=== PATIENT | female | born 2000 | race Caucasian/White ===

== ENCOUNTER 2018-06-05 00:43 | Emergency (ER) | payer SELFPAY ==
[2018-06-05 01:27] LABS: Bilirubin Negative (Negative); Blood, Urine Negative (Negative); Clarity CLEAR (Clear); Glucose, Urine (Dipstick) Negative (Negative); Leukocyte Negative (Negative); Nitrite Negative (Negative); Pregnancy Test - Urine (BHCG) Negative (Negative); Protein, Urine (Dipstick) Negative (Neg-Trace); Specific Gravity, Urine 1.014 (1.002-1.036); Urobilinogen 0.2 mg/dL (0.2-1.0); pH, Urine 5.5 (5.0-9.0)
[2018-06-05 01:28] LABS: Pregu Control Background? CLEAR/WHITE (CLR/WHITE); Pregu Control Bar Appear? YES (CONTROL BAR); Specific Gravity 1.014 (1.002-1.036)
[2018-06-05] MEDS ORDERED: Ketorolac Tromethamine 30 MG/ML VIAL ONE (02:27)
[2018-06-05] MEDS ORDERED: HYDROcodone/Acetaminophen 10/325 mg Tablet ONE (02:27)
--- NOTE | 2018-06-05 09:28 | ULT ---
PRELIMINARY REPORT/[facility]/EMERGENTY AFTER-HOURS PROCEDURE US Pelvis Complete, Transabdominal and US Pelvis, Transvaginal US Duplex Artery and Vein of the Abdomen, Pelvis, Scrotum and/or Retroperitoneum. Complete Ovarian. EXAM DATE/TIME: 06/05/2018 1:24 AM CLINICAL HISTORY: 18 years old, female; Pain; Other: Sudden onset sever rlq pain, HX of prev ov cyst TECHNIQUE: Real-time transabdominal and transvaginal pelvic ultrasound (complete) with image documentation. Cannon svaginal imaging was used for better evaluation of the endometrium and adnexa. Real-time duplex ultra sound scan of the arterial and venous flow with color Doppler flow and spectral waveform analysis. Complete duplex exam focused on the ovaries. COMPARISON: No relevant prior studies available. FINDINGS: Left ovary was not visualized on transvaginal ultrasound. Therefore a transabdominal ultrasound was p erformed for further evaluation. Duplex ultrasound scan with color Doppler flow and spectral waveform analysis was also performed for evaluation of pelvic and ovarian blood flow and torsion. Uterus/cervix: No myometrial mass. Endometrium measures 0.5 cm in thickness. Right adnexa: Right ovarian complex/probable hemorrhagic cyst measuring up to 2.3 cm. Otherwise unrem arkable. Normal duplex of the ovary. No evidence of torsion. Left adnexa: No acute findings. No mass. Normal duplex of the ovary. No evidence of torsion. Free fluid: Moderate. Bladder: The bladder is decompressed. IMPRESSION: Right ovarian complex/probable hemorrhagic cyst. Pelvic fluid. Thank you for allowing us to participate in the care of your patient. Dictated and Authenticated by: Darinel Watts MD 06/05/2018 2:23 AM Central Time ([place] & [place]) FINAL REPORT by Dr. Perez EMERGENCY AFTER HOURS STUDY ULTRASOUND PELVIS ULTRASOUND TRANSVAGINAL DOPPLER DUPLEX: DATE: 06/05/2018. TIME: 1:51 a.m. HISTORY: A 18-year-old female with sudden severe onset of right-sided pelvic pain. TECHNIQUE: Transabdominal transducer used to evaluate intrapelvic contents. Endovaginal transducer used to visu blanca intrapelvic contents in greater detail. Color flow Doppler and Pulsed Doppler spectral waveform analysis of ovaries. FINDINGS: Uterus: 7 x 3 x 4 cm. Endometrial stripe: 0.5 cm (5 mm). Right ovary: 4.5 x 3 x 3 cm. Left ovary: 2.5 x 1.5 x 2.5 cm. Uterine leiomyoma (fibroid): None. Blood flow in both ovaries: Present. Ovarian cyst: 2.5 x 2 x 2.5 cm lesion in the right ovary with crescentic liquid component and oval so lid-appearing component which may represent hemorrhage. Free fluid in the cul-de-sac: Small amount. This report agrees with preliminary report by [facility]. IMPRESSION: A 2.5 cm right ovarian lesion, probably representing a hemorrhagic ovarian cyst. ALFREDO [place] POS: JAIME
== END 2018-06-05 03:47 | disposition home or self-care (01) ==
LOC: ERS 00:43
DX: N83.201 Unspecified ovarian cyst, right side (principal); Z87.891 Personal history of nicotine dependence
CPT/HCPCS: 76856; 81003; 81025; 96372; J1885

== ENCOUNTER 2019-02-12 08:27 | Day surgery (SDC) | payer OTHER ==
[2019-02-12] MEDS ORDERED: hydrALAZINE 20 MG/ML VIAL SLOW IVP PRN (09:13)
[2019-02-12 09:14] VITALS: BMI 41.6
[2019-02-12 09:56] LABS: #Eosinphils 0.3 thou/uL (0.0-0.7); #Lymphocytes 1.7 thou/uL (1.20-3.40); #Monocytes 0.8 thou/uL (0.11-0.59); %Basophils 0.1 % (0.0-1.0); %Lymphocytes 13.4 % (28.0-48.0); %Neutrophils 78.5 % (31.0-61.0); Hemoglobin 13.5 g/dL (12.0-16.0); Mean Corpuscular HGB CONC 33.7 g/dL (32.0-36.0); Mean Corpuscular Hemoglobin 28.1 pg (25.0-35.0); Mean Corpuscular Volume 83.5 fL (78.0-98.0); Platelet Count 303 thou/uL (130-400); RBC Distribution Width 13.2 % (11.5-14.5); Red Blood Cell (RBC) Count 4.78 mill/uL (4.00-5.20); White Blood Cell (WBC) Count 12.7 thou/uL (4.8-10.8)
[2019-02-12 10:04] LABS: Bilirubin Negative (Negative); Blood, Urine Negative (Negative); Clarity Clear (Clear); Glucose, Urine (Dipstick) Normal (Negative); Leukocyte Negative Leu/uL (Negative); Mucous/LPF Rare LPF (<2+); Nitrite Negative (Negative); Protein, Urine (Dipstick) 20 mg/dL (Neg-Trace); RBC/HPF 0-3 HPF (0-3); Squamous Epithelial 0-3 HPF (0-3); Urobilinogen Normal mg/dL (Less than 2); WBC/HPF 0-3 HPF (0-3)
[2019-02-12 10:16] LABS: ALT (SGPT) 17 U/L (8-55); AST (SGOT) 20 U/L (5-34); Albumin 3.7 g/dL (3.5-5.0); Alkaline Phosphatase 86 U/L (40-150); Anion Gap 12 mmol/L (10-20); BUN (Urea Nitrogen) 8 mg/dL (7.0-18.7); Bilirubin, Total 0.2 mg/dL (0.2-1.2); Calc. Creatinine Clearance 293 mL/min (70-130); Calcium 9.6 mg/dL (7.8-10.44); Carbon Dioxide 20 mmol/L (22-29); Chloride 105 mmol/L (98-107); Estimated GFR-MDRD Greater than 90; Globulin 3.7 g/dL (2.4-3.5); Glucose 79 mg/dL (70-105); Potassium 3.7 mmol/L (3.5-5.1); Protein, Total 7.4 g/dL (6.0-8.3); Sodium 133 mmol/L (136-145)
[2019-02-12 10:23] LABS: Bacteria/HPF None Seen HPF (None Seen)
[2019-02-12 10:24] LABS: Urine Culture Reflex No No
--- NOTE | 2019-02-12 11:12 | ER ---
DATE OF SERVICE: 02/12/2019 TIME OF SERVICE: 10:40. HISTORY OF PRESENT ILLNESS: Ms. Gamboa is 22 weeks and 2 days by stated NIKHIL. She is a G1, P0, at 18 years old. She received her antepartum care in [place], [place]. She reports lower back pain and kind of global abdominal pain off and on for the past several days. She denies vaginal bleeding. She denies contractions. She denies rupture of membranes. She reports an active fetus. RADIO JOURNALIST HISTORY: No antepartum record available. The patient reports an uncomplicated . PAST MEDICAL HISTORY: None. PAST SURGICAL HISTORY: None. ALLERGIES: DENIES. MEDICATIONS: vitamins. SOCIAL HISTORY: Denies tobacco, alcohol, or drug use. FAMILY HISTORY: Noncontributory. REVIEW OF SYSTEMS: Noncontributory. PHYSICAL EXAMINATION: VITAL SIGNS: White female, pulse 99, respirations 16, temperature 98.5, blood pressure 118/72. HEENT: Within normal limits. LUNGS: Clear to auscultation bilaterally. HEART: Regular rate and rhythm. ABDOMEN: Soft, nontender. She has some mild discomfort more laterally on each side of the uterus anywhere else. VULVA: Without lesions. VAGINA: Deferred. EXTREMITIES: No clubbing, cyanosis, or edema. No CVA tenderness noted. LABORATORY DATA: Laboratory was carried out, which revealed a normal CBC, white count was at 12.7, which was within normal limits for , hematocrit of 39%, normal platelets, normal comprehensive metabolic panel, and negative cath UA. monitoring was carried out, which revealed no contractions, no decelerations, and FHTs 150s to 160. IMPRESSION: Discomforts of at 22 weeks gestation. No evidence of labor or urinary tract infection. PLAN: Discharge home, ER precautions, keep scheduled followup at [place]. Job ID: [id number]
== END 2019-02-12 10:49 | disposition home or self-care (01) ==
LOC: L&D/OP 08:27
DX: O26.892 Other specified pregnancy related conditions, second trimester (principal); M54.5 Low back pain; R10.9 Unspecified abdominal pain; Z88.2 Allergy status to sulfonamides; Z3A.22 22 weeks gestation of pregnancy
CPT/HCPCS: 36415; 80053; 81001; 85025; 99283

== ENCOUNTER 2019-03-19 05:39 | Emergency (ER) | payer OTHER | END 2019-03-19 06:18 | disposition home or self-care (01) | LOC: ERS 05:39 | DX: H60.92 Unspecified otitis externa, left ear (principal); Z87.891 Personal history of nicotine dependence | CPT/HCPCS: 99282 ==

== ENCOUNTER 2019-08-11 05:06 | Emergency (ER) | payer OTHER | END 2019-08-11 06:14 | disposition home or self-care (01) | LOC: ERS 05:06 | DX: Z30.431 Encounter for routine checking of intrauterine contraceptive device (principal); Z87.891 Personal history of nicotine dependence | CPT/HCPCS: 99283 ==